=== PATIENT | female | born 2000 | race Caucasian/White ===

== ENCOUNTER 2018-01-18 17:50 | Inpatient (IN) | payer MEDICAID ==
[~2018-01-18] VITALS: Ht 170.2 cm; Wt 100.2 kg
[2018-01-18] MEDS ORDERED: PREN-546 PO (18:52)
[2018-01-18] MEDS ORDERED: METHYLERGONOVINE 0.2 MG/ML AMP IM PRN (18:55)
[2018-01-18] MEDS ORDERED: OXYTOCIN 20 UNITS in LACTATED RINGERS 1,000 ML IV PRN (18:55)
[2018-01-18] MEDS ORDERED: OXYTOCIN 10 UNITS/ML VIAL IM PRN (18:55)
[2018-01-18 19:43] LABS: BASOPHILS % (AUTO) 0.2 % (0.0-2.0); EOSINOPHILS # (AUTO) 0.2 K/uL (0-0.4); EOSINOPHILS % (AUTO) 1.4 % (0.0-4.0); HEMATOCRIT 41.1 % (36-48); HEMOGLOBIN 13.7 g/dL (12.0-16.0); LYMPHOCYTES # (AUTO) 2.2 K/uL (2.5-16.5); LYMPHOCYTES % (AUTO) 15.8 % (20.5-51.1); MEAN CORPUSCULAR HEMOGLOBIN 31 pg (27-31); MEAN CORPUSCULAR HGB CONC 33 g/dL (33-37); MEAN CORPUSCULAR VOLUME 92.5 fL (80-94); MONOCYTES # (AUTO) 0.8 K/uL (0.8-1.0); MONOCYTES % (AUTO) 5.6 % (1.7-9.3); NEUTROPHILS # (AUTO) 10.7 K/uL (1.8-7.7); PLATELET COUNT (AUTO) 145 K/uL (140-450); RED BLOOD CELL COUNT(AUTO) 4.44 MIL/uL (4.20-5.40); RED CELL DISTRIBUTION WIDTH 14.1 % (11.6-13.7)
[2018-01-18 19:54] LABS: APPEARANCE,URINE CLEAR (CLEAR); BILIRUBIN,URINE NEGATIVE (NEGATIVE); BLOOD, URINE NEGATIVE (NEGATIVE); COLOR,URINE YELLOW (YELLOW); LEUKOCYTE ESTERASE ,URINE NEGATIVE (NEGATIVE); NITRITE, URINE NEGATIVE (NEGATIVE); UGLUCOSE NEGATIVE (NEGATIVE)
[2018-01-18] MEDS: LACTATED RINGERS 1,000 ML IV SCH (20:14)
[2018-01-18] MEDS ORDERED: MISOPROSTOL 25 MCG TAB ONE (21:28)
[2018-01-18] MEDS: MISOPROSTOL 25 MCG TAB VG PRN (21:37)
[2018-01-19] MEDS ORDERED: MISOPROSTOL 25 MCG TAB ONE (01:45)
[2018-01-19] MEDS: LACTATED RINGERS 1,000 ML IV SCH ×5 (01:49→23:23)
[2018-01-19] MEDS: MISOPROSTOL 25 MCG TAB VG PRN (01:52)
[2018-01-19] MEDS ORDERED: OXYTOCIN 20 UNITS/LR PREMIX 1,000 ML IV ONE (06:07)
[2018-01-19] MEDS ORDERED: NALBUPHINE 10 MG/ML AMP ONE ×5 (07:04→19:39)
[2018-01-19] MEDS ORDERED: PROMETHAZINE 25 MG/ML VIAL ONE ×3 (07:04→19:39)
[2018-01-19] MEDS: NALBUPHINE 10 MG/ML AMP IVP PRN ×5 (07:06→19:45)
[2018-01-19] MEDS: PROMETHAZINE 25 MG/ML VIAL IVP PRN ×3 (07:06→19:46)
--- NOTE | 2018-01-19 09:00 | NUR ---
PATIENT HAS BEEN SCREENED AND CATEGORIZED LOW NUTRITION RISK. PATIENT WILL BE SEEN WITHIN 7 DAYS OF ADMISSION. 01/25/[address]
[2018-01-19] MEDS ORDERED: BUPIVACAINE 0.125%/NS PREMIX 250 ML EPI SCH ×2 (19:01→23:20)
[2018-01-19] MEDS ORDERED: AMPICILLIN 2,000 MG VIAL ONE (22:14)
[2018-01-19] MEDS ORDERED: AMPICILLIN 2,000 MG in NACL 0.9% 100 ML IV SCH (22:30)
[2018-01-20] MEDS ORDERED: NALOXONE 0.4 MG/ML VIAL ONE (00:48)
[2018-01-20] MEDS ORDERED: MIDAZOLAM 2 MG/2 ML VIAL ONE (01:19)
[2018-01-20] MEDS ORDERED: MORPHINE PRES FREE 10 MG/10 ML AMP IV ONE (01:19)
[2018-01-20] MEDS ORDERED: ceFAZolin 1,000 MG VIAL ONE (01:21)
[2018-01-20] MEDS ORDERED: LIDOCAINE 2% 1000 MG/50 ML VIAL INJ ONE (01:26)
[2018-01-20] MEDS ORDERED: OXYTOCIN 10 UNITS/ML VIAL ONE ×2 (01:26→01:47)
[2018-01-20] MEDS ORDERED: OXYTOCIN 20 UNITS in LACTATED RINGERS 1,000 ML IV SCH ×3 (02:01→07:38)
[2018-01-20] MEDS ORDERED: NALBUPHINE 10 MG/ML AMP IVP PRN (02:05)
[2018-01-20] MEDS ORDERED: ONDANSETRON 4 MG/2 ML VIAL IVP PRN ×2 (02:05)
[2018-01-20] MEDS ORDERED: NALOXONE 0.4 MG/ML VIAL IVP PRN ×3 (02:05)
[2018-01-20] MEDS ORDERED: MEPERIDINE 25 MG/ML SYR IVP PRN (02:05)
[2018-01-20] MEDS ORDERED: HYDROmorphone 1 MG/ML AMP IVP PRN (02:05)
[2018-01-20] MEDS ORDERED: diphenhydrAMINE 50 MG/ML VIAL IVP PRN ×2 (02:05)
[2018-01-20] MEDS ORDERED: OXYTOCIN 20 UNITS/LR PREMIX 1,000 ML IV ONE (02:16)
[2018-01-20] MEDS ORDERED: ONDANSETRON 4 MG/2 ML VIAL ONE (02:22)
[2018-01-20] MEDS ORDERED: IBUPROFEN 600 MG TAB PO PRN (04:05)
[2018-01-20] MEDS ORDERED: HYDROcodone/APAP 5/325 MG 1 TAB TAB PO PRN (04:05)
[2018-01-20] MEDS ORDERED: oxyCODONE/APAP 5/325 MG 1 TAB TAB PO PRN (04:05)
[2018-01-20] MEDS ORDERED: SIMETHICONE 80 MG TAB.CHEW PO PRN (04:10)
[2018-01-20] MEDS: KETOROLAC 30 MG/ML VIAL IM/IVP SCH ×3 (06:05→17:52)
[2018-01-20] MEDS: DOCUSATE SOD/SENNA 50/8.6 MG 1 TAB PO SCH (21:06)
[2018-01-21] MEDS: KETOROLAC 30 MG/ML VIAL IM/IVP SCH (00:14)
[2018-01-21 07:08] LABS: HEMATOCRIT 31.1 % (36-48); HEMOGLOBIN 10.2 g/dL (12.0-16.0); MEAN CORPUSCULAR HEMOGLOBIN 31 pg (27-31); MEAN CORPUSCULAR HGB CONC 33 g/dL (33-37); MEAN CORPUSCULAR VOLUME 94.1 fL (80-94); PLATELET COUNT (AUTO) 125 K/uL (140-450); RED CELL DISTRIBUTION WIDTH 14.3 % (11.6-13.7); WHITE BLOOD COUNT (AUTO) 26.3 K/uL (4.5-11.0)
[2018-01-21 07:41] LABS: LYMPHOCYTES % (MANUAL) 8 % (20-46); MONOCYTES % (MANUAL) 4 % (5-12)
[2018-01-21] MEDS: CEPHALEXIN 500 MG CAP PO SCH ×3 (12:45→23:58)
[2018-01-21] MEDS: DOCUSATE SOD/SENNA 50/8.6 MG 1 TAB PO SCH (21:06)
[2018-01-22] MEDS: CEPHALEXIN 500 MG CAP PO SCH ×3 (05:56→18:58)
[2018-01-23] MEDS: CEPHALEXIN 500 MG CAP PO SCH ×2 (00:43→06:47)
[2018-01-23 05:25] LABS: BASOPHILS % (AUTO) 0.3 % (0.0-2.0); EOSINOPHILS # (AUTO) 0.3 K/uL (0-0.4); HEMATOCRIT 29.5 % (36-48); HEMOGLOBIN 9.9 g/dL (12.0-16.0); LYMPHOCYTES # (AUTO) 1.8 K/uL (2.5-16.5); LYMPHOCYTES % (AUTO) 12.1 % (20.5-51.1); MEAN CORPUSCULAR HEMOGLOBIN 31 pg (27-31); MEAN CORPUSCULAR HGB CONC 33 g/dL (33-37); MEAN CORPUSCULAR VOLUME 92.9 fL (80-94); MONOCYTES # (AUTO) 1.3 K/uL (0.8-1.0); MONOCYTES % (AUTO) 8.4 % (1.7-9.3); NEUTROPHILS # (AUTO) 11.7 K/uL (1.8-7.7); NEUTROPHILS % (AUTO) 77.2 % (42.2-75.2); PLATELET COUNT (AUTO) 163 K/uL (140-450); RED BLOOD CELL COUNT(AUTO) 3.18 MIL/uL (4.20-5.40); RED CELL DISTRIBUTION WIDTH 13.9 % (11.6-13.7); WHITE BLOOD COUNT (AUTO) 15.2 K/uL (4.5-11.0)
== END 2018-01-23 13:10 | disposition home or self-care (01) | DRG 540 ==
LOC: MLD 17:50 → MFCC 01-20 02:30
PROVIDERS: ADMIT Obstetrics & Gynecology; ATTEND Obstetrics & Gynecology
PROC: 10D00Z1 Extraction of Products of Conception, Low, Open Approach (ICD-10-PCS; principal; 2018-01-18)
DX: O76 Abnormality in fetal heart rate and rhythm complicating labor and delivery (principal); O62.2 Other uterine inertia; Z37.0 Single live birth; Z3A.39 39 weeks gestation of pregnancy
CPT/HCPCS: 36415; 51702; 59200; 81003; 85025; 86592; 86886; 86900; 86901; J0290; J0690; J1885; J2001; J2250; J2270; J2300; J2310; J2405; J2550; J2590; J3490; J7060; J7120